=== PATIENT | male | born 1955 | race Two or more races ===

== ENCOUNTER 2018-10-26 20:34 | Emergency (ER) | payer SELFPAY ==
--- NOTE | 2018-10-26 20:46 | EDM.PDOC ---
<Buster Acharya E - Last Filed: 10/26/18 21:54> ED HPI GENERAL MEDICAL PROBLEM - General Chief Complaint: Neuro Symptoms/Deficits Stated Complaint: STROKE Time Seen by Provider: 10/26/18 20:35 Source of Information: Reports: Patient, Wiring Mechanic History Limitations: Reports: Language Barrier (Has corn husk baler at bedside; ALEXEI was offered) - History of Present Illness INITIAL COMMENTS - FREE TEXT/NARRATIVE: HISTORY AND PHYSICAL: Stroke CODE was called upon patient arrival. Dr Estrada was involved in this case. Patient is primarily Swedish speaking. He can speak some Kazakh with the help of an shoulder boner who is his friend. LAEXEI was offered but patient prefers shoulder boner friend. History of present illness: Patient is a 63-year-old male who presents to the emergency room today with concerns for left sided facial weakness and change in speech. Patient's last known well time was 3 days ago when he started to feel "funny". Patient decided to come to the ED today when his friend came over and noticed he was unable to move the left upper part of his face. Patient states he does have a history of a stroke quite a few years ago. He did not have any deficits at the time that stroke. Patient denies any recent head injury, headache or change in vision. Patient has been fully ambulatory without any weakness, deficits or numbness or tingling of distal extremities. He denies any fever, chills, chest pain, shortness of breath or cough. Denies any abdominal pain, nausea, vomiting, diarrhea, constipation or dysuria. He has been eating and drinking appropriately though states he has not been able to move the corner of the left mouth per usual. Has had no difficulty swallowing, chewing and no coughing as a result of eating/swallowing. He denies any other history of medical problems and does not take any prescribed or [id number] medication/supplements. Review of systems: As per history of present illness and below otherwise all systems reviewed and negative. Past medical history: As per history of present illness and as reviewed below otherwise noncontributory. Surgical history: As per history of present illness and as reviewed below otherwise noncontributory. Social history: See social history for further information Family history: As per history of present illness and as reviewed below otherwise noncontributory. Physical exam: General: Patient is alert, oriented, and in no acute distress. He is lying comfortably on exam table. HEENT: See NEURO for details. Atraumatic, normocephalic, pupils equal and reactive bilaterally, negative for conjunctival pallor or scleral icterus, mucous membranes moist, TMs normal bilaterally, throat clear, neck supple, nontender, trachea midline. No drooling or trismus noted. No meningeal signs. No hot potato voice noted. Lungs: Clear to auscultation, breath sounds equal bilaterally, chest nontender. Heart: S1S2, regular rate and rhythm without overt murmur Abdomen: Soft, nondistended, nontender. Negative for masses or hepatosplenomegaly. Negative for costovertebral tenderness. Pelvis: Stable nontender. Genitourinary: Deferred. Rectal: Deferred. Skin: Intact, warm, dry. No lesions or rashes noted. Extremities: Atraumatic, moves all per self, strong and equal bilaterally, negative for cords or calf pain. Neurovascular unremarkable. Neuro: Patient left side of her face was weak. When asked to smile on the right side of the face was able to coordinate this movement. When asked to raise eyebrows only the right side of the face would correspond. Patient did have full use of all extremities and fingers with intact sensation. Ability to assess speech was limited due to Swedish speaking. Otherwise, Awake, alert, oriented. Otherwise other cranial nerves are unremarkable. Cerebellum unremarkable. Motor and sensory unremarkable throughout. Exam nonfocal. Notes: Patient was seen along with Dr. Estrada. Stroke code was called upon presentation to the ED. GCS score 15. NIH score of 2. The CT of the head shows no intracranial bleeding. Questionable loss of the left insular ribbon concerning for acute left middle cerebral artery infarction. I did talk with Dr Alvarez, neurologist that [facility] in [place]. We discussed this patient's case, current symptoms and duration. Patient is not a candidate for TPA. Due to the patient's symptoms being on the left and the concerning findings on the left as well he believes that it is appropriate to do the MRI/MRA in the morning. Requested that the patient be started on an aspirin. If the patient requests he may be transferred. This information was shared with the patient. We will talk to the hospitalist here to see if we can continue to monitor, repeat neuro checks and neurology assessment/evaluation in the morning. Upon waiting for patient's remaining labs is noted that his troponin is elevated at 0.105. Denies any symptoms of chest pain, shortness of breath, diaphoresis or palpitations. Aspirin has been given, 1 inch of Nitropaste applied. Dr. Brady at [facility] in [place]; has been consulted on this case. He is aware of both the neurological and elevated troponin findings and is agreeable to accepting this patient. Translation to patient has been completed and he is aware. He is agreeable to being transferred to [facility] and denies any further questions or concerns at this time. Diagnostics: Head CT, CBC, CMP, PT/INR, EKG, Troponin, 1 view chest XR Therapeutics: Aspirin, Solu-Medrol, Nitropaste Impression: [place] Palsy vs subacute CVA NSTEMI Plan: Transfer to [facility] in [place] via [facility]; per Dr Keene. Definitive disposition and diagnosis as appropriate pending reevaluation and review of above. Duration: Day(s): Location: Reports: Face - Related Data Allergies Allergy/AdvReac Type Severity Reaction Status Date / Time No Known Allergies Allergy Verified 10/26/18 20:42 Home Meds: Home Meds Lisinopril 20 mg PO DAILY 10/26/18 [History] Simvastatin [Zocor] 20 mg PO BEDTIME 10/26/18 [History] glyBURIDE [Glyburide] 5 mg PO BID 10/26/18 [History] metFORMIN HCl [Metformin HCl] 1,000 mg PO BID 10/26/18 [History] ED ROS GENERAL - Review of Systems Review Of Systems: ROS reveals no pertinent complaints other than HPI. ED EXAM, NEURO - Physical Exam Exam: See Below (See dictation) Course - Vital Signs Last Recorded V/S: Last Vital Signs Temp 36.1 C 10/26/18 20:37 Pulse 48 L 10/26/18 20:37 Resp 18 10/26/18 20:37 BP 192/83 H 10/26/18 20:37 Pulse Ox 96 10/26/18 20:37 - Orders/Labs/Meds Orders: Active Orders 24 hr Category Date Time Status Assess Neurological Status [RC] ASDIRECTED Care 10/26/18 20:37 Active EKG Documentation Completion [RC] STAT Care 10/26/18 20:37 Active Initiate Acute Stroke Protocol [RC] STAT Care 10/26/18 20:37 Active NIH Stroke Scale [RC] ASDIRECTED Care 10/26/18 20:37 Active Peripheral IV Insertion Adult [OM.PC] Stat Oth 10/26/18 20:37 Ordered Labs: Laboratory Tests 10/26/18 10/26/18 10/26/18 Range/Units 20:36 20:37 20:37 WBC 12.87 H (4.0-11.0) K/uL RBC 5.34 (4.50-5.90) M/uL Hgb 16.0 (13.0-17.0) g/dL Hct 46.6 (38.0-50.0) % MCV 87.3 (80.0-98.0) fL MCH 30.0 (27.0-32.0) pg MCHC 34.3 (31.0-37.0) g/dL RDW Std Deviation 42.2 (28.0-62.0) fl RDW Coeff of Chris 13 (11.0-15.0) % Plt Count 200 (150-400) K/uL MPV 11.00 (7.40-12.00) fL Neut % (Auto) 40.3 L (48.0-80.0) % Lymph % (Auto) 50.1 H (16.0-40.0) % Alfalfa % (Auto) 7.3 (0.0-15.0) % Eos % (Auto) 1.7 (0.0-7.0) % Baso % (Auto) 0.6 (0.0-1.5) % Neut # (Auto) 5.2 (1.4-5.7) K/uL Lymph # (Auto) 6.5 H (0.6-2.4) K/uL Alfalfa # (Auto) 0.9 H (0.0-0.8) K/uL Eos # (Auto) 0.2 (0.0-0.7) K/uL Baso # (Auto) 0.1 (0.0-0.1) K/uL Nucleated RBC % 0.0 /100WBC Nucleated RBCs # 0 K/uL INR 1.07 APTT 23.6 (18.6-31.3) SEC Sodium 137 (136-148) mmol/L Potassium 4.2 (3.5-5.1) mmol/L Chloride 102 (98-107) mmol/L Carbon Dioxide 25.3 (21.0-32.0) mmol/L BUN 24 H (7.0-18.0) mg/dL Creatinine 0.9 (0.8-1.3) mg/dL Est Cr Clr Drug Dosing TNP Estimated GFR (MDRD) > 60.0 ml/min Glucose 257 H (74-106) mg/dL Calcium 9.5 (8.5-10.1) mg/dL Total Bilirubin 0.2 (0.2-1.0) mg/dL AST 15 (15-37) IU/L ALT 27 (14-63) IU/L Alkaline Phosphatase 138 H (46-116) U/L Troponin I 0.105 H* (0.000-0.056) ng/mL Total Protein 7.2 (6.4-8.2) g/dL Albumin 3.5 (3.4-5.0) g/dL Globulin 3.7 (2.6-4.0) g/dL Albumin/Globulin Ratio 0.9 (0.9-1.6) Meds: Medications Discontinued Medications Generic Name Dose Route Start Last Admin Trade Name Freq PRN Reason Stop Dose Admin Aspirin 324 mg 10/26/18 21:19 10/26/18 21:42 Aspirin PO 10/26/18 21:20 324 mg ONETIME ONE Administration Methylprednisolone Sodium Succinate 125 mg 10/26/18 21:20 10/26/18 21:43 Solu-Medrol IVPUSH 10/26/18 21:21 125 mg ONETIME ONE Administration Nitroglycerin 1 gm 10/26/18 21:20 10/26/18 21:45 Nitro-Bid 2% TOP 10/26/18 21:21 1 gm ONETIME ONE Administration Departure - Departure Time of Disposition: 21:34 Disposition: DC/Tfer to Acute Hospital 02 Clinical Impression: Left facial numbness, NSTEMI (non-ST elevated myocardial infarction) - Discharge Information Referrals: PCP,None [Primary Care Provider] - Forms: ED Department Discharge <Adilene Estrada - Last Filed: 10/26/18 23:00> ED HPI GENERAL MEDICAL PROBLEM - History of Present Illness INITIAL COMMENTS - FREE TEXT/NARRATIVE: This is Dr. Estrada dictating an addendum note as they have been involved in this case. The patient's symptoms have been ongoing for at least 3 days and he has isolated facial findings. Due to the timeframe the patient is not a candidate for TPA. Friend at bedside says that he has had a stroke in the past but did not have any deficits from that. The patient is speaking without slurred speech and is moving all extremities and has good strength throughout and has a stroke scale of 2 for which he only lost points for facial weakness and sensation changes area the CT scan reports were called to us and we are aware of those. We will discuss these testing results with the neurologist on- call at [facility] and will discuss this disposition with our hospitalist once we get all of our other testing back As we have obtained a positive troponin, despite the patient not having chest pain and not coming to the ED for any cardiac symptoms he is aware that we need to transfer him. He has had bigeminy since he has been here but no chest pain or shortness of breath. Course - Orders/Labs/Meds Meds: Medications Discontinued Medications Generic Name Dose Route Start Last Admin Trade Name Mandeep PRN Reason Stop Dose Admin Aspirin 324 mg 10/26/18 21:19 10/26/18 21:42 Aspirin PO 10/26/18 21:20 324 mg ONETIME ONE Administration Methylprednisolone Sodium Succinate 125 mg 10/26/18 21:20 10/26/18 21:43 Solu-Medrol IVPUSH 10/26/18 21:21 125 mg ONETIME ONE Administration Nitroglycerin 1 gm 10/26/18 21:20 10/26/18 21:45 Nitro-Bid 2% TOP 10/26/18 21:21 1 gm ONETIME ONE Administration
--- NOTE | 2018-10-26 21:02 | CT ---
INDICATION: Slurred speech TECHNIQUE: Head CT without contrast. COMPARISON: None FINDINGS: CSF spaces: Within normal limits for age. Brain parenchyma: No intracranial hemorrhage. Questionable loss of the left insular ribbon. There are nonspecific low attenuation white matter changes consistent with chronic microvascular disease. No midline shift. Skull base and calvarium: The visualized paranasal sinuses and mastoid air cells demonstrate no acute or significant findings. The visualized orbits are grossly unremarkable. No skull fractures. IMPRESSION: No intracranial hemorrhage. Questionable loss of the left insular ribbon concerning for acute left middle cerebral artery infarction. Findings were discussed with Dr. Acharya at 8:57 p.m. on October 26, 2018. Please note that all CT scans at this facility use dose modulation, iterative reconstruction, and/or weight-based dosing when appropriate to reduce radiation dose to as low as reasonably achievable. Dictated by Tressa Campuzano MD @ Oct 26 2018 8:54PM Signed by Dr. Tressa Campuzano @ Oct 26 2018 9:00PM
[2018-10-26 21:07] LABS: CHLORIDE,CL 102 mmol/L (98-107); SODIUM,NA 137 mmol/L (136-148)
[2018-10-26] MEDS ORDERED: Aspirin 81 MG Tab.Chew PO ONE (21:19)
[2018-10-26] MEDS ORDERED: Nitroglycerin 2% Oint 1 GM UD Packet TOP ONE (21:20)
[2018-10-26] MEDS ORDERED: methylPREDNISolone Sodium Succinate 125 MG/2 ML SDV IVPUSH ONE (21:20)
--- NOTE | 2018-10-26 22:11 | CR ---
Indication: Chest pain Technique: Chest 1 view Comparison: None Findings/Impression: Cardiovascular and mediastinum: Heart size and vasculature are normal in caliber and appearance. Mediastinum is within normal limits. Lungs and pleural space: Lungs are clear. No sign of infiltrate or mass. No sign of pleural effusion. No pneumothorax. Bones and soft tissues: No significant findings. Dictated by Tressa Campuzano MD @ Oct 26 2018 10:10PM Signed by Dr. Tressa Campuzano @ Oct 26 2018 10:10PM
== END 2018-10-26 22:10 ==
LOC: MW.ED 20:34
DX: I21.4 Non-ST elevation (NSTEMI) myocardial infarction (principal); R29.810 Facial weakness; Z79.84 Long term (current) use of oral hypoglycemic drugs; Z79.899 Other long term (current) drug therapy
CPT/HCPCS: 70450; 71045; 80053; 84484; 85025; 85610; 85730; 93005; 96374; 99285; A9270; J2930